=== PATIENT | female | born 1995 | race African-American/Black ===

== ENCOUNTER 2020-03-18 17:50 | Inpatient (IN) | payer OTHER ==
[~2020-03-18] VITALS: Ht 157.5 cm; Wt 55.8 kg
[2020-03-18 18:00] VITALS: BP_SYST 100; BP_SYST 101; BP_DIAS 56; BP_DIAS 57
[2020-03-18] MEDS ORDERED: ONDANSETRON HCL 4 MG TABLET PO PRN (19:30)
[2020-03-18] MEDS ORDERED: MELATONIN 3 MG TABLET PO PRN (19:30)
[2020-03-18] MEDS: ERYTHROMYCIN 0.5% 3.5 GM TUBE OPHTHALMIC OINTMENT OD SCH (20:43)
[2020-03-18] MEDS: DOCUSATE SODIUM 100 MG CAPSULE PO SCH (20:44)
[2020-03-18] MEDS: SENNA 187 MG TABLET PO SCH (20:45)
[2020-03-18] MEDS: GABAPENTIN 300 MG CAPSULE PO SCH (20:45)
[2020-03-18] MEDS ORDERED: IBUPROFEN 600 MG TABLET PO SCH (21:00)
[2020-03-18 23:36] VITALS: BP 100/57
[2020-03-18] MEDS: OxyCODONE HCL 5 MG IR TABLET PO PRN (23:36)
[2020-03-19 00:36] VITALS: BP 100/50
[2020-03-19] MEDS ORDERED: PNEUMOCOCCAL VACCINE POLYVALENT 0.5 ML VIAL [PPSV23] IM ONE (01:00)
[2020-03-19 08:00] VITALS: BP 95/48
[2020-03-19] MEDS: IBUPROFEN 600 MG TABLET PO SCH ×3 (08:00→16:33)
[2020-03-19 08:18] LABS: BASOPHILS % (AUTO) 0.3 % (0.0-2.0); EOSINOPHILS % (AUTO) 5.9 % (1.0-6.0); HEMATOCRIT 33.7 % (36-46); HEMOGLOBIN 11.4 g/dL (12.0-16.0); LYMPHOCYTES # (AUTO) 1.3 K/uL (1.0-4.8); LYMPHOCYTES % (AUTO) 14.2 % (22.0-44.0); MEAN CORPUSCULAR HEMOGLOBIN 29.5 pg (26.0-34.0); MEAN CORPUSCULAR VOLUME 87 fL (80-100); MONOCYTES % (AUTO) 11.2 % (2.0-9.0); NEUTROPHILS # (AUTO) 6.1 K/uL (1.8-7.7); NEUTROPHILS % (AUTO) 68.4 % (40.0-70.0); PLATELET COUNT (AUTO) 199 K/uL (150-450); RED BLOOD CELL COUNT(AUTO) 3.87 MIL/uL (4.00-5.20); RED CELL DISTRIBUTION WIDTH 12.8 % (11.5-14.5)
[2020-03-19 08:47] LABS: ALANINE AMINOTRANSFERASE 34 U/L (12-78); ALBUMIN 2.4 g/dL (3.4-5.0); ALKALINE PHOSPHATASE 39 U/L (46-116); ANION GAP 6 mmol/L (8-16); ASPARTATE AMINOTRANSFERASE 23 U/L (15-37); BILIRUBIN,TOTAL 0.2 mg/dL (0.1-1.0); CALCIUM, TOTAL 8.4 mg/dL (8.8-10.5); CARBON DIOXIDE 27 mmol/L (22-29); CHLORIDE 104 mmol/L (98-107); CREATININE 0.63 mg/dL (0.60-1.30); GLOMERULAR FILTR. RATE CALC > 60 mL/min (>60); GLUCOSE,RANDOM 93 mg/dL (70-110); POTASSIUM 4.5 mmol/L (3.5-5.1); SODIUM SERUM 137 mmol/L (136-145); TOTAL PROTEIN, SERUM 5.3 g/dL (6.4-8.2); UREA NITROGEN, BLOOD 9 mg/dL (7-18)
[2020-03-19] MEDS: ERYTHROMYCIN 0.5% 3.5 GM TUBE OPHTHALMIC OINTMENT OD SCH ×5 (09:00→20:35)
[2020-03-19] MEDS: GABAPENTIN 300 MG CAPSULE PO SCH ×2 (09:00→09:39)
[2020-03-19] MEDS: OxyCODONE HCL 5 MG IR TABLET PO PRN ×2 (09:39→20:34)
[2020-03-19] MEDS: DOCUSATE SODIUM 100 MG CAPSULE PO SCH ×2 (09:39→20:34)
[2020-03-19] MEDS: ENOXAPARIN SODIUM 40 MG/0.4 ML PF SYRINGE SQ SCH (13:26)
[2020-03-19 16:30] VITALS: BP 100/50
[2020-03-19 17:44] LABS: APPEARANCE,URINE CLEAR (CLEAR); BILIRUBIN,URINE NEGATIVE (NEGATIVE); GLUCOSE, URINE (UA) NEGATIVE (NEGATIVE); KETONES,URINE NEGATIVE (NEGATIVE); LEUKOCYTE ESTERASE ,URINE NEGATIVE (NEGATIVE); NITRATE,URINE NEGATIVE (NEGATIVE); OCCULT BLOOD,URINE LARGE (NEGATIVE); PH,URINE 7.5 (5.0-8.0); PROTEIN,URINE NEGATIVE (NEGATIVE); UROBILINOGEN,URINE 0.2 mg/dL (<=1.0)
[2020-03-19 18:03] LABS: BACTERIA,URINE None Seen /HPF (None Seen); SQUAMOUS EPITHELIAL CELL,UR Rare /LPF (None Seen); WBC,URINE None Seen /HPF (0-5)
[2020-03-19] MEDS: PHENAZOPYRIDINE HCL 200 MG TABLET PO SCH (20:34)
[2020-03-19] MEDS: SENNA 187 MG TABLET PO SCH (20:34)
[2020-03-20 06:00] VITALS: BP 102/56
[2020-03-20 08:53] VITALS: BP 97/48
[2020-03-20] MEDS: IBUPROFEN 600 MG TABLET PO SCH ×3 (08:58→16:13)
[2020-03-20] MEDS: DOCUSATE SODIUM 100 MG CAPSULE PO SCH ×2 (08:58→20:24)
[2020-03-20] MEDS: PHENAZOPYRIDINE HCL 200 MG TABLET PO SCH ×3 (08:59→20:24)
[2020-03-20] MEDS: ERYTHROMYCIN 0.5% 3.5 GM TUBE OPHTHALMIC OINTMENT OD SCH ×4 (09:57→20:24)
[2020-03-20] MEDS: ENOXAPARIN SODIUM 40 MG/0.4 ML PF SYRINGE SQ SCH (09:57)
[2020-03-20 16:00] VITALS: BP 102/52
[2020-03-20] MEDS: SENNA 187 MG TABLET PO SCH (20:24)
[2020-03-20] MEDS: ACETAMINOPHEN 325 MG TABLET PO PRN (20:27)
[2020-03-21 01:44] VITALS: BP 92/52
[2020-03-21 01:45] VITALS: BP 111/56
[2020-03-21 07:10] VITALS: BP 96/57
[2020-03-21] MEDS: DOCUSATE SODIUM 100 MG CAPSULE PO SCH ×2 (08:43→20:03)
[2020-03-21] MEDS: IBUPROFEN 600 MG TABLET PO SCH ×3 (08:43→17:00)
[2020-03-21] MEDS: ERYTHROMYCIN 0.5% 3.5 GM TUBE OPHTHALMIC OINTMENT OD SCH ×4 (08:43→20:02)
[2020-03-21] MEDS: PHENAZOPYRIDINE HCL 200 MG TABLET PO SCH ×2 (08:43→16:03)
[2020-03-21] MEDS: ENOXAPARIN SODIUM 40 MG/0.4 ML PF SYRINGE SQ SCH (08:45)
[2020-03-21 16:49] VITALS: BP 103/69
[2020-03-21] MEDS: SENNA 187 MG TABLET PO SCH (20:03)
[2020-03-21] MEDS: ACETAMINOPHEN 325 MG TABLET PO PRN (20:08)
[2020-03-21 23:46] VITALS: BP 100/52
[2020-03-22 08:47] LABS: BASOPHILS % (AUTO) 0.6 % (0.0-2.0); EOSINOPHILS % (AUTO) 2.9 % (1.0-6.0); HEMATOCRIT 33.7 % (36-46); HEMOGLOBIN 11.4 g/dL (12.0-16.0); LYMPHOCYTES # (AUTO) 1.1 K/uL (1.0-4.8); LYMPHOCYTES % (AUTO) 16.3 % (22.0-44.0); MEAN CORPUSCULAR HEMOGLOBIN 29.5 pg (26.0-34.0); MEAN CORPUSCULAR HGB CONC 33.7 G/dL (31.0-37.0); MEAN CORPUSCULAR VOLUME 88 fL (80-100); MONOCYTES # (AUTO) 0.7 K/uL (0.1-1.0); MONOCYTES % (AUTO) 9.8 % (2.0-9.0); NEUTROPHILS # (AUTO) 4.7 K/uL (1.8-7.7); NEUTROPHILS % (AUTO) 70.4 % (40.0-70.0); PLATELET COUNT (AUTO) 238 K/uL (150-450); RED BLOOD CELL COUNT(AUTO) 3.86 MIL/uL (4.00-5.20); RED CELL DISTRIBUTION WIDTH 12.6 % (11.5-14.5)
[2020-03-22 08:58] VITALS: BP 101/56
[2020-03-22 08:58] LABS: ANION GAP 5 mmol/L (8-16); CALCIUM, TOTAL 8.7 mg/dL (8.8-10.5); CARBON DIOXIDE 28 mmol/L (22-29); CHLORIDE 107 mmol/L (98-107); GLOMERULAR FILTR. RATE CALC > 60 mL/min (>60); GLUCOSE,RANDOM 96 mg/dL (70-110); POTASSIUM 4.2 mmol/L (3.5-5.1); SODIUM SERUM 140 mmol/L (136-145); UREA NITROGEN, BLOOD 8 mg/dL (7-18)
[2020-03-22] MEDS: DOCUSATE SODIUM 100 MG CAPSULE PO SCH ×2 (08:58→20:21)
[2020-03-22] MEDS: IBUPROFEN 600 MG TABLET PO SCH ×3 (08:58→17:40)
[2020-03-22] MEDS: ERYTHROMYCIN 0.5% 3.5 GM TUBE OPHTHALMIC OINTMENT OD SCH ×4 (08:58→20:21)
[2020-03-22] MEDS: ENOXAPARIN SODIUM 40 MG/0.4 ML PF SYRINGE SQ SCH (13:04)
[2020-03-22 16:23] VITALS: BP 100/60
[2020-03-22] MEDS: SENNA 187 MG TABLET PO SCH (20:21)
[2020-03-22] MEDS: ACETAMINOPHEN 325 MG TABLET PO PRN (22:40)
[2020-03-22 23:40] VITALS: BP 96/49
[2020-03-23 05:45] VITALS: BP 92/61
[2020-03-23 07:55] VITALS: BP 102/62
[2020-03-23] MEDS: IBUPROFEN 600 MG TABLET PO SCH ×3 (07:55→18:02)
[2020-03-23] MEDS: DOCUSATE SODIUM 100 MG CAPSULE PO SCH ×2 (07:56→20:30)
[2020-03-23] MEDS: ENOXAPARIN SODIUM 40 MG/0.4 ML PF SYRINGE SQ SCH (07:56)
[2020-03-23] MEDS: ERYTHROMYCIN 0.5% 3.5 GM TUBE OPHTHALMIC OINTMENT OD SCH ×4 (10:36→20:31)
[2020-03-23 15:04] VITALS: BP 96/57
[2020-03-23] MEDS: SENNA 187 MG TABLET PO SCH (20:30)
[2020-03-23] MEDS: ACETAMINOPHEN 325 MG TABLET PO PRN (20:39)
[2020-03-23 23:30] VITALS: BP 93/63
[2020-03-24 08:00] VITALS: BP 98/52
[2020-03-24] MEDS: ERYTHROMYCIN 0.5% 3.5 GM TUBE OPHTHALMIC OINTMENT OD SCH ×4 (08:34→21:19)
[2020-03-24] MEDS: ENOXAPARIN SODIUM 40 MG/0.4 ML PF SYRINGE SQ SCH (08:35)
[2020-03-24] MEDS: DOCUSATE SODIUM 100 MG CAPSULE PO SCH (08:35)
[2020-03-24] MEDS: IBUPROFEN 600 MG TABLET PO SCH ×3 (08:35→16:07)
[2020-03-24 15:50] VITALS: BP 105/66
[2020-03-24] MEDS: SENNA 187 MG TABLET PO SCH (21:19)
[2020-03-24] MEDS: DOCUSATE SODIUM 250 MG CAPSULE PO SCH (21:20)
[2020-03-24] MEDS: ACETAMINOPHEN 325 MG TABLET PO PRN (21:49)
[2020-03-25] VITALS: BP 101/60
[2020-03-25 08:59] VITALS: BP 96/55
[2020-03-25] MEDS: ENOXAPARIN SODIUM 40 MG/0.4 ML PF SYRINGE SQ SCH (09:05)
[2020-03-25] MEDS: ERYTHROMYCIN 0.5% 3.5 GM TUBE OPHTHALMIC OINTMENT OD SCH ×4 (09:05→20:37)
[2020-03-25] MEDS: DOCUSATE SODIUM 250 MG CAPSULE PO SCH ×2 (09:05→20:37)
[2020-03-25] MEDS: IBUPROFEN 600 MG TABLET PO SCH ×3 (09:06→17:43)
[2020-03-25 15:28] VITALS: BP 95/55
[2020-03-25] MEDS: SENNA 187 MG TABLET PO SCH (20:37)
[2020-03-25] MEDS: ACETAMINOPHEN 325 MG TABLET PO PRN (20:44)
[2020-03-26 05:16] VITALS: BP 95/54
[2020-03-26 07:40] VITALS: BP 98/58
[2020-03-26] MEDS: MULTIVITAMINS WITH MINERALS, THERAPEUTIC TABLET PO SCH (08:43)
[2020-03-26] MEDS: DOCUSATE SODIUM 250 MG CAPSULE PO SCH ×2 (08:44→20:13)
[2020-03-26] MEDS: ENOXAPARIN SODIUM 40 MG/0.4 ML PF SYRINGE SQ SCH (08:44)
[2020-03-26] MEDS: ERYTHROMYCIN 0.5% 3.5 GM TUBE OPHTHALMIC OINTMENT OD SCH ×4 (08:44→20:13)
[2020-03-26] MEDS: IBUPROFEN 600 MG TABLET PO SCH ×3 (08:44→16:07)
[2020-03-26 16:05] VITALS: BP 107/57
[2020-03-26] MEDS: SENNA 187 MG TABLET PO SCH (20:13)
[2020-03-26 23:07] VITALS: BP 95/58
[2020-03-27 08:00] VITALS: BP 102/69
[2020-03-27] MEDS: IBUPROFEN 600 MG TABLET PO SCH ×3 (08:46→16:08)
[2020-03-27] MEDS: ERYTHROMYCIN 0.5% 3.5 GM TUBE OPHTHALMIC OINTMENT OD SCH ×4 (08:47→20:08)
[2020-03-27] MEDS: ENOXAPARIN SODIUM 40 MG/0.4 ML PF SYRINGE SQ SCH (08:47)
[2020-03-27] MEDS: MULTIVITAMINS WITH MINERALS, THERAPEUTIC TABLET PO SCH (08:47)
[2020-03-27] MEDS: DOCUSATE SODIUM 250 MG CAPSULE PO SCH ×2 (08:47→20:08)
[2020-03-27 15:30] VITALS: BP 100/59
[2020-03-27] MEDS: SENNA 187 MG TABLET PO SCH (20:08)
[2020-03-28 01:50] VITALS: BP 105/61
[2020-03-28] MEDS: IBUPROFEN 600 MG TABLET PO SCH ×3 (06:51→15:51)
[2020-03-28] MEDS: ERYTHROMYCIN 0.5% 3.5 GM TUBE OPHTHALMIC OINTMENT OD SCH ×4 (06:51→20:59)
[2020-03-28] MEDS: DOCUSATE SODIUM 250 MG CAPSULE PO SCH ×2 (06:51→20:59)
[2020-03-28] MEDS: ENOXAPARIN SODIUM 40 MG/0.4 ML PF SYRINGE SQ SCH (06:51)
[2020-03-28] MEDS: MULTIVITAMINS WITH MINERALS, THERAPEUTIC TABLET PO SCH (06:51)
[2020-03-28 09:42] VITALS: BP 104/64
[2020-03-28 15:20] VITALS: BP 100/60
[2020-03-28] MEDS: SENNA 187 MG TABLET PO SCH (20:59)
[2020-03-29 06:15] VITALS: BP 95/50
[2020-03-29 07:15] VITALS: BP_SYST 132; BP_SYST 98; BP_DIAS 48; BP_DIAS 63
[2020-03-29] MEDS: DOCUSATE SODIUM 250 MG CAPSULE PO SCH ×2 (08:21→21:00)
[2020-03-29] MEDS: MULTIVITAMINS WITH MINERALS, THERAPEUTIC TABLET PO SCH (08:21)
[2020-03-29] MEDS: ENOXAPARIN SODIUM 40 MG/0.4 ML PF SYRINGE SQ SCH (08:22)
[2020-03-29] MEDS: IBUPROFEN 600 MG TABLET PO SCH ×3 (08:22→16:37)
[2020-03-29] MEDS: ERYTHROMYCIN 0.5% 3.5 GM TUBE OPHTHALMIC OINTMENT OD SCH ×4 (08:22→21:00)
[2020-03-29 16:20] VITALS: BP 109/57
[2020-03-29] MEDS: SENNA 187 MG TABLET PO SCH (21:00)
[2020-03-30 07:40] VITALS: BP 93/55
[2020-03-30] MEDS: ENOXAPARIN SODIUM 40 MG/0.4 ML PF SYRINGE SQ SCH (08:25)
[2020-03-30] MEDS: IBUPROFEN 600 MG TABLET PO SCH ×3 (08:25→16:24)
[2020-03-30] MEDS: MULTIVITAMINS WITH MINERALS, THERAPEUTIC TABLET PO SCH (08:25)
[2020-03-30] MEDS: DOCUSATE SODIUM 250 MG CAPSULE PO SCH ×2 (08:25→21:11)
[2020-03-30] MEDS: ERYTHROMYCIN 0.5% 3.5 GM TUBE OPHTHALMIC OINTMENT OD SCH ×4 (08:25→21:11)
[2020-03-30 16:10] VITALS: BP 99/54
[2020-03-30] MEDS: SENNA 187 MG TABLET PO SCH (21:11)
[2020-03-30 21:42] LABS: APPEARANCE,URINE CLEAR (CLEAR); BILIRUBIN,URINE NEGATIVE (NEGATIVE); GLUCOSE, URINE (UA) NEGATIVE (NEGATIVE); KETONES,URINE NEGATIVE (NEGATIVE); LEUKOCYTE ESTERASE ,URINE TRACE (NEGATIVE); NITRATE,URINE NEGATIVE (NEGATIVE); OCCULT BLOOD,URINE LARGE (NEGATIVE); PH,URINE 5.5 (5.0-8.0); PROTEIN,URINE NEGATIVE (NEGATIVE); UROBILINOGEN,URINE 0.2 mg/dL (<=1.0)
[2020-03-30 22:35] LABS: RBC,URINE 0-2 /HPF (0-2); SQUAMOUS EPITHELIAL CELL,UR Few /LPF (None Seen)
[2020-03-30 22:36] LABS: BACTERIA,URINE Rare /HPF (None Seen)
[2020-03-31 06:33] LABS: BASOPHILS % (AUTO) 0.9 % (0.0-2.0); EOSINOPHILS % (AUTO) 8.6 % (1.0-6.0); HEMATOCRIT 33.7 % (36-46); HEMOGLOBIN 11.4 g/dL (12.0-16.0); LYMPHOCYTES # (AUTO) 1.6 K/uL (1.0-4.8); LYMPHOCYTES % (AUTO) 30.2 % (22.0-44.0); MEAN CORPUSCULAR HEMOGLOBIN 29.4 pg (26.0-34.0); MEAN CORPUSCULAR HGB CONC 33.7 G/dL (31.0-37.0); MEAN CORPUSCULAR VOLUME 87 fL (80-100); MONOCYTES # (AUTO) 0.5 K/uL (0.1-1.0); MONOCYTES % (AUTO) 9.4 % (2.0-9.0); NEUTROPHILS # (AUTO) 2.7 K/uL (1.8-7.7); NEUTROPHILS % (AUTO) 50.9 % (40.0-70.0); PLATELET COUNT (AUTO) 314 K/uL (150-450); RED BLOOD CELL COUNT(AUTO) 3.87 MIL/uL (4.00-5.20)
[2020-03-31 06:56] LABS: ALANINE AMINOTRANSFERASE 23 U/L (12-78); ALBUMIN 2.9 g/dL (3.4-5.0); ALKALINE PHOSPHATASE 39 U/L (46-116); ANION GAP 7 mmol/L (8-16); ASPARTATE AMINOTRANSFERASE 15 U/L (15-37); BILIRUBIN,TOTAL 0.1 mg/dL (0.1-1.0); CALCIUM, TOTAL 8.5 mg/dL (8.8-10.5); CARBON DIOXIDE 26 mmol/L (22-29); CHLORIDE 107 mmol/L (98-107); CREATININE 0.56 mg/dL (0.60-1.30); GLOMERULAR FILTR. RATE CALC > 60 mL/min (>60); GLUCOSE,RANDOM 95 mg/dL (70-110); POTASSIUM 4.6 mmol/L (3.5-5.1); SODIUM SERUM 140 mmol/L (136-145); TOTAL PROTEIN, SERUM 5.9 g/dL (6.4-8.2); UREA NITROGEN, BLOOD 8 mg/dL (7-18)
[2020-03-31 07:05] VITALS: BP 101/58
[2020-03-31] MEDS: ERYTHROMYCIN 0.5% 3.5 GM TUBE OPHTHALMIC OINTMENT OD SCH ×4 (08:54→20:41)
[2020-03-31] MEDS: MULTIVITAMINS WITH MINERALS, THERAPEUTIC TABLET PO SCH (08:54)
[2020-03-31] MEDS: IBUPROFEN 600 MG TABLET PO SCH ×3 (08:54→16:04)
[2020-03-31] MEDS: DOCUSATE SODIUM 250 MG CAPSULE PO SCH ×2 (08:54→20:41)
[2020-03-31] MEDS: ENOXAPARIN SODIUM 40 MG/0.4 ML PF SYRINGE SQ SCH (08:54)
[2020-03-31 15:53] VITALS: BP 98/48
[2020-03-31] MEDS: SENNA 187 MG TABLET PO SCH (20:40)
[2020-03-31 20:51] VITALS: BP 101/58
[2020-04-01] MEDS: IBUPROFEN 600 MG TABLET PO SCH (08:18)
[2020-04-01] MEDS: DOCUSATE SODIUM 250 MG CAPSULE PO SCH ×2 (08:18→20:32)
[2020-04-01] MEDS: MULTIVITAMINS WITH MINERALS, THERAPEUTIC TABLET PO SCH (08:18)
[2020-04-01] MEDS: ERYTHROMYCIN 0.5% 3.5 GM TUBE OPHTHALMIC OINTMENT OD SCH ×4 (08:19→20:32)
[2020-04-01 09:08] VITALS: BP 108/61
[2020-04-01] MEDS ORDERED: IBUPROFEN 600 MG TABLET PO PRN (11:15)
[2020-04-01 15:10] VITALS: BP 100/56
[2020-04-01] MEDS: SENNA 187 MG TABLET PO SCH (20:32)
[2020-04-01 23:07] VITALS: BP 99/48
[2020-04-02] MEDS: DOCUSATE SODIUM 250 MG CAPSULE PO SCH ×2 (08:17→19:58)
[2020-04-02] MEDS: MULTIVITAMINS WITH MINERALS, THERAPEUTIC TABLET PO SCH (08:17)
[2020-04-02 08:43] VITALS: BP 104/61
[2020-04-02] MEDS: ERYTHROMYCIN 0.5% 3.5 GM TUBE OPHTHALMIC OINTMENT OD SCH ×4 (09:53→19:58)
[2020-04-02 15:06] VITALS: BP 98/46
[2020-04-02] MEDS: SENNA 187 MG TABLET PO SCH (19:58)
[2020-04-03] MEDS: DOCUSATE SODIUM 250 MG CAPSULE PO SCH ×2 (08:47→20:10)
[2020-04-03] MEDS: MULTIVITAMINS WITH MINERALS, THERAPEUTIC TABLET PO SCH (08:47)
[2020-04-03] MEDS: ERYTHROMYCIN 0.5% 3.5 GM TUBE OPHTHALMIC OINTMENT OD SCH ×4 (08:47→20:10)
[2020-04-03 08:57] VITALS: BP 93/54
[2020-04-03 15:24] VITALS: BP 97/58
[2020-04-03] MEDS: SENNA 187 MG TABLET PO SCH (20:10)
[2020-04-03] MEDS ORDERED: SENN8.6T90 PO (22:28)
[2020-04-03] MEDS ORDERED: ERYT3.5O8 OU (22:28)
[2020-04-03] MEDS ORDERED: DOCU-342 PO (22:28)
[2020-04-03] MEDS ORDERED: MULT-248 PO (22:28)
[2020-04-04] VITALS: BP 97/65
[2020-04-04 06:55] LABS: BASOPHILS % (AUTO) 0.6 % (0.0-2.0); EOSINOPHILS % (AUTO) 6.8 % (1.0-6.0); HEMATOCRIT 36.3 % (36-46); HEMOGLOBIN 11.9 g/dL (12.0-16.0); LYMPHOCYTES % (AUTO) 32.8 % (22.0-44.0); MEAN CORPUSCULAR HEMOGLOBIN 28.7 pg (26.0-34.0); MEAN CORPUSCULAR HGB CONC 32.7 G/dL (31.0-37.0); MEAN CORPUSCULAR VOLUME 88 fL (80-100); MONOCYTES # (AUTO) 0.6 K/uL (0.1-1.0); NEUTROPHILS % (AUTO) 49.8 % (40.0-70.0); PLATELET COUNT (AUTO) 309 K/uL (150-450); RED BLOOD CELL COUNT(AUTO) 4.14 MIL/uL (4.00-5.20); RED CELL DISTRIBUTION WIDTH 12.7 % (11.5-14.5)
[2020-04-04 07:10] LABS: ANION GAP 7 mmol/L (8-16); CARBON DIOXIDE 28 mmol/L (22-29); CHLORIDE 103 mmol/L (98-107); CREATININE 0.69 mg/dL (0.60-1.30); GLUCOSE,RANDOM 92 mg/dL (70-110); POTASSIUM 4.2 mmol/L (3.5-5.1); SODIUM SERUM 138 mmol/L (136-145); UREA NITROGEN, BLOOD 8 mg/dL (7-18)
[2020-04-04 07:11] LABS: CALCIUM, TOTAL 8.9 mg/dL (8.8-10.5); GLOMERULAR FILTR. RATE CALC > 60 mL/min (>60)
[2020-04-04 07:20] VITALS: BP 101/62
[2020-04-04] MEDS: ERYTHROMYCIN 0.5% 3.5 GM TUBE OPHTHALMIC OINTMENT OD SCH ×2 (08:38→13:15)
[2020-04-04] MEDS: DOCUSATE SODIUM 250 MG CAPSULE PO SCH (08:38)
[2020-04-04] MEDS: MULTIVITAMINS WITH MINERALS, THERAPEUTIC TABLET PO SCH (08:38)
== END 2020-04-04 13:20 | disposition home or self-care (01) | DRG 964 ==
LOC: 2WR 17:50
PROVIDERS: ADMIT Physical Medicine & Rehabilitation; ATTEND Physical Medicine & Rehabilitation
DX: S06.9X9A Unspecified intracranial injury with loss of consciousness of unspecified duration, initial encounter (principal); E46 Unspecified protein-calorie malnutrition; S37.29XA Other injury of bladder, initial encounter; S36.113A Laceration of liver, unspecified degree, initial encounter; S02.85XA Fracture of orbit, unspecified, initial encounter for closed fracture; J45.909 Unspecified asthma, uncomplicated; F41.9 Anxiety disorder, unspecified; G47.00 Insomnia, unspecified; N32.89 Other specified disorders of bladder; Z82.49 Family history of ischemic heart disease and other diseases of the circulatory system; F43.22 Adjustment disorder with anxiety; M54.9 Dorsalgia, unspecified; K59.03 Drug induced constipation; T40.2X5A Adverse effect of other opioids, initial encounter; Y92.89 Other specified places as the place of occurrence of the external cause; I95.9 Hypotension, unspecified; D64.9 Anemia, unspecified; Z68.25 Body mass index [BMI] 25.0-25.9, adult; Z91.81 History of falling
CPT/HCPCS: 87081; 92507; 92523; 97110; 97112; 97116; 97162; 97166; 97530; 97535; 99366; J1650